=== PATIENT | male | born 2005 | race Caucasian/White ===

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

== ENCOUNTER 2024-03-17 20:54 | Emergency (ER) | payer OTHER ==
[2024-03-17 21:01] VITALS: BP 127/69; PULSE 75; RESP 18; TEMP 98.2; BMI 24.3
[2024-03-17 21:26] LABS: HEMATOCRIT 51.1 % (35.4-49); HEMOGLOBIN 17.3 G/dL (11.7-16.9); MCH 31.5 pg (25.7-33.7); MCHC 33.8 g/dl (32.0-35.9); MEAN CELL VOLUME 93.2 fl (80-96); MEAN PLT VOLUME 7.8 fl (7.5-11.1); PLATELET COUNT 157.1 10^3/uL (134-434); RBC 5.48 10^6/uL (4.00-5.60); RDW 13.5 % (11.9-15.9)
[2024-03-17] MEDS ORDERED: ONDANSETRON 4 MG/2 ML VIAL ONE (21:45)
[2024-03-17] MEDS ORDERED: ACETAMINOPHEN INJECTION 100 ML ONE (21:45)
[2024-03-17 21:46] LABS: PLATELET ESTIMATE ADEQUATE
[2024-03-17 21:47] LABS: ALBUMIN 4.9 g/dl (3.4-5.0); ALK PHOS 39 U/L (45-117); ANION GAP 12 mmol/L (4-13); BILIRUBIN,TOTAL 0.6 mg/dl (0.2-1); CALCIUM 9.6 mg/dl (8.5-10.1); CHLORIDE 101 mmol/L (98-107); CO2 24 mmol/L (21-32); CREATININE 1.2 mg/dl (0.6-1.3); GLUCOSE,RANDOM 81 mg/dl (74-106); POTASSIUM 3.6 mmol/L (3.5-5.1); SGOT/AST 23 U/L (15-37); SGPT/ALT 17 U/L (7-52); SODIUM 137 mmol/L (136-145); TOT PROT 7.4 g/dl (6.4-8.2)
[2024-03-17] MEDS: ACETAMINOPHEN 1000 MG/100 ML BAG IVPB ONE (21:47)
[2024-03-17] MEDS: ONDANSETRON 4 MG/2 ML VIAL IVPUSH ONE (21:48)
[2024-03-17] MEDS: SODIUM CHLORIDE 1,000 ML IV STA (22:21)
== END 2024-03-17 23:18 | disposition home or self-care (01) ==
LOC: FER 20:54
PROC: 3E033NZ Introduction of Analgesics, Hypnotics, Sedatives into Peripheral Vein, Percutaneous Approach (ICD-10-PCS; principal; 2024-03-17)
PROC: 3E033GC Introduction of Other Therapeutic Substance into Peripheral Vein, Percutaneous Approach (ICD-10-PCS; 2024-03-17)
PROC: 3E0337Z Introduction of Electrolytic and Water Balance Substance into Peripheral Vein, Percutaneous Approach (ICD-10-PCS; 2024-03-17)
DX: K52.9 Noninfective gastroenteritis and colitis, unspecified (principal); R11.2 Nausea with vomiting, unspecified; R10.84 Generalized abdominal pain
CPT/HCPCS: 36415; 80053; 83690; 85027; 99284-25; J0131